=== PATIENT | male | born 1980 | race Caucasian/White ===

== ENCOUNTER 2021-07-02 20:39 | Inpatient (IN) | payer SELFPAY ==
[~2021-07-02] VITALS: Ht 180.3 cm; Wt 83.0 kg
[2021-07-02] MEDS ORDERED: ACETAMINOPHEN 500 MG TABLET PO ONE (21:00)
--- NOTE | 2021-07-02 21:26 | RAD ---
Exam: Chest one view INDICATION: Fever TECHNIQUE: Frontal view of the chest Comparisons: None FINDINGS: The cardiomediastinal silhouette and pulmonary vessels are within normal limits. The lung and pleural spaces are clear. IMPRESSION: No acute cardiopulmonary process. Electronically signed by: Nikolay Carrera MD (07/02/2021 9:23 PM) ELMO
[2021-07-02 21:35] LABS: BASO # 0.1 x10^3/uL (0.0-0.2); BASO % 1 % (0-3); EOS % 0 % (0-3); HEMATOCRIT 43.7 % (39.0-53.0); LYMPH # 1.4 x10^3/uL (1.0-4.8); LYMPH % 15 % (24-48); MEAN CORPUSCULAR HEMOGLOBIN 31 pg (25-35); MEAN CORPUSCULAR HGB CONC 34 g/dL (31-37); MEAN CORPUSCULAR VOLUME 89 fL (79-100); MONO % 11 % (0-9); NEUT # 6.9 x10^3/uL (1.8-7.7); NEUT % 73 % (31-73); PLATELET COUNT 197 x10^3/uL (140-400); RED CELL DISTRIBUTION WIDTH 13.8 % (11.5-14.5); WHITE BLOOD COUNT 9.4 x10^3/uL (4.0-11.0)
[2021-07-02 21:44] LABS: CALCIUM 8.4 mg/dL (8.5-10.1); CREATININE 1.9 mg/dL (0.7-1.3); GFR 38.9
[2021-07-02 21:56] LABS: INFLUENZA A PATIENT NEGATIVE (NEGATIVE); INFLUENZA B PATIENT NEGATIVE (NEGATIVE)
[2021-07-02 21:59] LABS: ALBUMIN 3.3 g/dL (3.4-5.0); ALBUMIN/GLOBULIN RATIO 0.7 (1.0-1.7); TOTAL BILIRUBIN 0.3 mg/dL (0.2-1.0); TOTAL PROTEIN 7.9 g/dL (6.4-8.2)
--- NOTE | 2021-07-02 23:27 | PHYS DOC ---
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 Patient states symptoms have been going on since this morning. He states he went to work and his temperature was 102. He states he was tested at work for covid at work and was negative. He somehow went home and the did a rapid Covid test without his knowledge (he states he was sleeping when his nose was swabbed) and he was positive for Covid. states patient's oxygen was running low in the low to mid 80s. 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 Patient denies any chest pain. Patient states he is fully vaccinated against COVID-19 though he will not name the vaccine he received and when. Review of Systems: Review of Systems: Constitutional: Reports fatigue and fever Eyes: Denies change in visual acuity. [] HENT: Denies nasal congestion or sore throat. [] Respiratory: Reports shortness of breath Cardiovascular: Denies chest pain or edema. [] GI: Denies abdominal pain, nausea, vomiting, bloody stools or diarrhea. [] : Denies dysuria. [] Musculoskeletal: Denies back pain or joint pain. [] Integument: Denies rash. [] Neurologic: Denies headache, focal weakness or sensory changes. [] Psychiatric: Denies depression or anxiety. [] Heart Score: C/O Chest Pain: N/A Risk Factors: Risk Factors: DM, Current or recent (<one month) smoker, HTN, HLP, family history of CAD, obesity. Risk Scores: Score 0 - 3: 2.5% MACE over next 6 weeks - Discharge Home Score 4 - 6: 20.3% MACE over next 6 weeks - Admit for Clinical Observation Score 7 - 10: 72.7% MACE over next 6 weeks - Early Invasive Strategies Current Medications: Current Medications Medications (Trade) Dose Ordered Sig/Shorty Start Time Stop Time Status Last Admin Dose Admin Acetaminophen (Tylenol) 1,000 mg 1X ONCE 07/02/21 21:00 07/02/21 21:01 DC Allergies: Allergies: Allergies Coded Allergies Type Severity Reaction Last Updated Verified Penicillins Allergy Severe 07/02/21 Yes Physical Exam: PE: Constitutional: Well developed, well nourished, no acute distress, non-toxic appearance. [] HENT: Normocephalic, atraumatic, bilateral external ears normal, oropharynx moist, no oral exudates, nose normal. [] Eyes: PERRLA, EOMI, conjunctiva normal, no discharge. [] Neck: Normal range of motion, no tenderness, supple, no stridor. [] Cardiovascular:Heart rate regular rhythm, no murmur [] Lungs & Thorax: Bilateral breath sounds clear to auscultation [] Abdomen: Bowel sounds normal, soft, no tenderness, no masses, no pulsatile masses. [] Skin: Warm, dry, no erythema, no rash. [] Back: No tenderness, no CVA tenderness. [] Extremities: No tenderness, no cyanosis, no clubbing, ROM intact, no edema. [] Neurologic: Alert and oriented X 3, normal motor function, normal sensory function, no focal deficits noted. [] Psychologic: Affect normal, judgement normal, mood normal. [] Current Patient Data: Labs: Laboratory Tests Test 07/02/21 21:15 White Blood Count 9.4 x10^3/uL (4.0-11.0) Red Blood Count 4.90 x10^6/uL (4.30-5.70) Hemoglobin 15.0 g/dL (13.0-17.5) Hematocrit 43.7 % (39.0-53.0) Mean Corpuscular Volume 89 fL (79-100) Mean Corpuscular Hemoglobin 31 pg (25-35) Mean Corpuscular Hemoglobin Concent 34 g/dL (31-37) Red Cell Distribution Width 13.8 % (11.5-14.5) Platelet Count 197 x10^3/uL (140-400) Neutrophils (%) (Auto) 73 % (31-73) Lymphocytes (%) (Auto) 15 % (24-48) L Monocytes (%) (Auto) 11 % (0-9) H Eosinophils (%) (Auto) 0 % (0-3) Basophils (%) (Auto) 1 % (0-3) Neutrophils # (Auto) 6.9 x10^3/uL (1.8-7.7) Lymphocytes # (Auto) 1.4 x10^3/uL (1.0-4.8) Monocytes # (Auto) 1.0 x10^3/uL (0.0-1.1) Eosinophils # (Auto) 0.0 x10^3/uL (0.0-0.7) Basophils # (Auto) 0.1 x10^3/uL (0.0-0.2) Sodium Level 132 mmol/L (136-145) L Potassium Level 4.0 mmol/L (3.5-5.1) Chloride Level 99 mmol/L (98-107) Carbon Dioxide Level 25 mmol/L (21-32) Anion Gap 8 (6-14) Blood Urea Nitrogen 19 mg/dL (8-26) Creatinine 1.9 mg/dL (0.7-1.3) H Estimated GFR (Cockcroft-Gault) 38.9 BUN/Creatinine Ratio 10 (6-20) Glucose Level 89 mg/dL (70-99) Lactic Acid Level 0.6 mmol/L (0.4-2.0) Calcium Level 8.4 mg/dL (8.5-10.1) L Magnesium Level 2.0 mg/dL (1.8-2.4) Total Bilirubin 0.3 mg/dL (0.2-1.0) Aspartate Amino Transferase (AST) 24 U/L (15-37) Alanine Aminotransferase (ALT) 19 U/L (16-63) Alkaline Phosphatase 71 U/L (46-116) Troponin I High Sensitivity 41 ng/L (4-75) BQ-Kxa-A-Type Natriuretic Peptide 526 pg/mL (0-124) H Total Protein 7.9 g/dL (6.4-8.2) Albumin 3.3 g/dL (3.4-5.0) L Albumin/Globulin Ratio 0.7 (1.0-1.7) L Procalcitonin 0.17 ng/mL (0.00-0.10) H Influenza Type A Antigen Negative (NEGATIVE) Influenza Type B Antigen Negative (NEGATIVE) SARS-CoV-2 Antigen (Rapid) Negative (NEGATIVE) Laboratory Tests 07/02/21 21:15 Laboratory Tests 07/02/21 21:15 Vital Signs: Vital Signs Date Time Temp Pulse Resp B/P (MAP) Pulse Ox O2 Delivery O2 Flow Rate FiO2 07/02/21 22:00 92 18 100/58 (72) 92 Room Air 07/02/21 20:40 98.0 98.0 EKG: EK interpreted by Dr. Mann sinus rhythm heart rate 91 no STEMI [] Radiology/Procedures: Radiology/Procedures: []PROCEDURE: PORTABLE CHEST 1V Exam: Chest one view INDICATION: Fever TECHNIQUE: Frontal view of the chest Comparisons: None FINDINGS: The cardiomediastinal silhouette and pulmonary vessels are within normal limits. The lung and pleural spaces are clear. IMPRESSION: No acute cardiopulmonary process. Electronically signed by: Reinier Kingston MD (07/02/2021 9:23 PM) [facility] DICTATED and SIGNED BY: REINIER KINGSTON MD DATE: 07/02/[id number] 0 Course & Med Decision Making: Course & Med Decision Making Pertinent Labs and Imaging studies reviewed. (See chart for details) This is a 41-year-old male patient with history of stage III kidney disease, 1 kidney, presenting today complaining of shortness of breath, fatigue, fever, body aches symptoms began today. Patient states the did a home COVID19 test on him which was positive. Vitals on arrival to the ED temperature 98.0, heart rate 1 7, respiration 20 on room air, O2 sats 90 to 94%, blood pressure 108/56. Chest x-ray is negative for any acute findings Negative influenza a and B Negative rapid Covid test, PCR Covid pending CBC with no acute findings, CMP with creatinine of 1.9, BUN is normal, I spoke to patient's , is very concerned and was not willing to take patient home. Patient will be admitted Dragon Disclaimer: Dragon Disclaimer: This electronic medical record was generated, in whole or in part, using a voice recognition dictation system. Departure Departure Impression: Primary Impression: Person under investigation for COVID-19 Additional Impressions: Shortness of breath CRF (chronic renal failure) Qualified Codes: N18.9 - Chronic kidney disease, unspecified Disposition: 09 ADMITTED INPATIENT Condition: STABLE Referrals: UNKNOWN PCP NAME (PCP) MATILDE THOMAS APRN Jul 02, 2021 23:26
[2021-07-02] MEDS ORDERED: ACETAMINOPHEN 325 MG TABLET. PO PRN (23:30)
[2021-07-02] MEDS ORDERED: MORPHINE SULFATE 2 MG/ML INJ. IVP PRN (23:30)
[2021-07-02] MEDS ORDERED: ONDANSETRON PF 4 MG/2 ML VIAL. IVP PRN (23:30)
[2021-07-03 04:24] LABS: BASO % 1 % (0-3); EOS % 0 % (0-3); HEMATOCRIT 45.7 % (39.0-53.0); HEMOGLOBIN 15.3 g/dL (13.0-17.5); LYMPH # 1.9 x10^3/uL (1.0-4.8); LYMPH % 24 % (24-48); MEAN CORPUSCULAR HEMOGLOBIN 30 pg (25-35); MEAN CORPUSCULAR HGB CONC 34 g/dL (31-37); MEAN CORPUSCULAR VOLUME 91 fL (79-100); MONO % 13 % (0-9); NEUT # 4.9 x10^3/uL (1.8-7.7); NEUT % 62 % (31-73); PLATELET COUNT 190 x10^3/uL (140-400); RED BLOOD COUNT 5.04 x10^6/uL (4.30-5.70); WHITE BLOOD COUNT 7.8 x10^3/uL (4.0-11.0)
[2021-07-03 04:47] LABS: ALBUMIN 3.4 g/dL (3.4-5.0); ALBUMIN/GLOBULIN RATIO 0.9 (1.0-1.7); CALCIUM 8.2 mg/dL (8.5-10.1); CREATININE 1.9 mg/dL (0.7-1.3); GFR 38.9; POTASSIUM 4.1 mmol/L (3.5-5.1); TOTAL BILIRUBIN 0.3 mg/dL (0.2-1.0); TOTAL PROTEIN 7.2 g/dL (6.4-8.2)
[2021-07-03 05:02] VITALS: BP 99/64
[2021-07-03] MEDS ORDERED: bupropion (05:38)
[2021-07-03 07:00] VITALS: BP 103/55
--- NOTE | 2021-07-03 08:29 | EKG ---
[facility] [address] [place] [address] Test Date: 2021-07-02 Test Time: 21:10:29 Pat Name: CODY BADILLO Department: Room: [facility] Gender: M Half Backer: : 1980 Requested By: MATILDE THOMAS Order Number: [id number] Reading MD: Tramaine Zhang Measurements Intervals Raymond Rate: 91 P: 64 MD: 148 QRS: 29 QRSD: 90 T: 44 QT: 336 QTc: 415 Interpretive Statements SINUS RHYTHM LEFT ATRIAL ABNORMALITY INCOMPLETE RIGHT BUNDLE BRANCH BLOCK Electronically Signed On 07-03-2021 13:39:34 TOY DESIGNER by Tramaine Zhang
--- NOTE | 2021-07-03 09:55 | PDOC1 ---
History and Physical Date of Admission Date of Admission DATE: 07/03/21 TIME: 09:52 Identification/Chief Complaint Chief Complaint Fever, shortness of breath, COVID19 positive Source Source: Chart review, Patient History of Present Illness History of Present Illness Mr Cole is a 41 yo male [employer] w/ PMHx CKDIII also s/p kidney donation 2019 in [place] who presents to the ED 07/02/21 complaining of fatigue, fever, body aches and shortness breath starting on . At work was noted with fever 102 F. states patient's oxygen was running low in the low to mid 80s. Patient denies any chest pain. Notes his is COVID-19 +8 days prior to arrival. 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 He had his COVID vaccines august 2020 WBC 9.4, Hb 15, platelets 197, NA 132, K4, BUN 19, CR 1.9, lactic acid 0.6, calcium 8.4, magnesium 2, bilirubin 0.3, AST 24, ALT 19, alkaline phosphatase 71, high-sensitivity troponin is 41, NT proBNP is 526, albumin 3.3, repeat high- sensitivity troponin is 35, procalcitonin was checked which was 0.17 EKG appears sinus rhythm rate of 91 bpm, incomplete right bundle branch block otherwise normal axis and intervals QTc [address] segment elevations no TWI Chest radiograph no abnormalities. Past Medical History Renal/: Chronic renal failure Past Surgical History Past Surgical History Right total knee arthroplasty with revision, appy Past Surgical History: Appendectomy, Total knee replacement (Right x2) Family History Family History: Hypertension Social History Smoke: 1 pack per day ALCOHOL: none Drugs: None Current Problem List Problem List Problems Medical Problems: (1) CRF (chronic renal failure) Status: Acute (2) Person under investigation for COVID-19 Status: Acute (3) Shortness of breath Status: Acute Current Medications Current Medications Current Medications Acetaminophen (Tylenol) 1,000 mg 1X ONCE PO ; Start 07/02/21 at 21:00; Stop 07/02/21 at 21:01; Status DC Ondansetron HCl (Zofran) 4 mg PRN Q8HRS PRN IVP NAUSEA/VOMITING; Start 07/02/21 at 23:30; Stop 2/3/22 at 23:29 Morphine Sulfate (Morphine Sulfate) 2 mg PRN Q2HR PRN IVP PAIN; Start 07/02/21 at 23:30; Stop 07/03/21 at 23:29 Acetaminophen (Tylenol) 650 mg PRN Q4HRS PRN PO FEVER > 100.3'F; Start 07/02/21 at 23:30; Stop 07/03/21 at 23:29 Active Scripts Active Reported [bupropion] Allergies Allergies: Coded Allergies: Penicillins (Verified Allergy, Severe, 07/02/21) ROS General: YES: Chills, Night Sweats, Fatigue, Malaise, Appetite; No: Other PSYCHOLOGICAL ROS: YES: Anxiety; No: Behavioral Disorder, Concentration difficultie, Decreased libido, Depression, Disorientation, Hallucinations, Hostility, Irritablity, Memory difficulties, Mood Swings, Obsessive thoughts, Physical abuse, Sexual abuse, Sleep disturbances, Suicidal ideation, Other Eyes: No Blurry vision, No Decreased vision, No Double vision, No Dry eyes, No Excessive tearing, No Eye Pain, No Itchy Eyes, No Loss of vision, No Photophobia, No Scotomata, No Uses contacts, No Uses glasses, No Other HEENT: YES: Heacaches, Nasal congestion; No: Visual Changes, Hearing change, Nasal discharge, Oral lesions, Sinus pain, Sore Throat, Epistaxis, Sneezing, Snoring, Tinnitus, Vertigo, Vocal changes, Other ALLERGY AND IMMUNOLOGY: No: Hives, Insect Bite Sensitivity, Itchy/Watery Eyes, Nasal Congestion, Post Nasal Drip, Seasonal Allergies, Other Hematological and Lymphatic: No: Bleeding Problems, Blood Clots, Blood Transfusions, Brusing, Night Sweats, Pallor, Swollen Lymph Nodes, Other ENDOCRINE: No: Breast Changes, Galactorrhea, Hair Pattern Changes, Hot Flashes, Malaise/lethargy, Mood Swings, Palpitations, Polydipsia/polyuria, Skin Changes, Temperature Intolerance, Unexpected Weight Changes, Other Breast: No New/Changing Breast Lumps, No Nipple changes, No Nipple discharge, No Other Respiratory: YES: Cough, Shortness of breath; No: Hemoptysis, Orthopnea, Pleuritic Pain, SOB with excertion, Sputum Changes, Stridor, Tachypnea, Wheezing, Other Cardiovascular: No Chest Pain, No Palpitations, No Orthopnea, No Paroxysmal Noc. Dyspnea, No Edema, No Lt Headedness, No Other Gastrointestinal: No Nausea, No Vomiting, No Abdominal Pain, No Diarrhea, No Constipation, No Melena, No Hematochezia, No Other Genitourinary: No Dysuria, No Frequency, No Incontinence, No Hematuria, No Retention, No Discharge, No Urgency, No Pain, No Flank Pain, No Other, No , No , No , No , No , No , No Musculoskeletal: No Gait Disturbance, No Joint Pain, No Joint Stiffness, No Joint Swelling, No Muscle Pain, No Muscular Weakness, No Pain In:, No Swelling In:, No Other Neurological: No Behavorial Changes, No Bowel/Bladder ControlChng, No Confusion, No Dizziness, No Gait Disturbance, No Headaches, No Impaired Coord/balance, No Memory Loss, No Numbness/Tingling, No Seizures, No Speech Problems, No Tremors, No Visual Changes, No Weakness, No Other Skin: No Dry Skin, No Eczema, No Hair Changes, No Lumps, No Mole Changes, No Mottling, No Nail Changes, No Pruritus, No Rash, No Skin Lesion Changes, No Other, No Acne Physical Exam General: Alert, Oriented X3, Cooperative, No acute distress HEENT: Atraumatic, PERRLA, EOMI, Mucous membr. moist/pink Lungs: Clear to auscultation, Normal air movement Heart: S1S2, RRR, no thrills, no rubs, no gallops, no murmurs Abdomen: Normal bowel sounds, Soft, No tenderness, No hepatosplenomegaly, No masses Rectal Exam: not examined Extremities: No clubbing, No cyanosis, No edema, Normal pulses, No tenderness/swelling Skin: No rashes, No breakdown, No significant lesion Neuro: Normal gait, Normal speech, Strength at 5/5 X4 ext, Normal tone, Sensation intact, Cranial nerves 3-12 NL, Reflexes 2+ Psych/Mental Status: Mental status NL, Mood NL Vitals Vitals Vital Signs Date Time Temp Pulse Resp B/P (MAP) Pulse Ox O2 Delivery O2 Flow Rate FiO2 07/03/21 05:02 98.2 82 20 99/64 (76) 98 98.2 07/03/21 05:00 Room Air Labs Labs Laboratory Tests Test 07/02/21 21:15 07/02/21 23:15 07/03/21 02:40 White Blood Count 9.4 x10^3/uL (4.0-11.0) 7.8 x10^3/uL (4.0-11.0) Red Blood Count 4.90 x10^6/uL (4.30-5.70) 5.04 x10^6/uL (4.30-5.70) Hemoglobin 15.0 g/dL (13.0-17.5) 15.3 g/dL (13.0-17.5) Hematocrit 43.7 % (39.0-53.0) 45.7 % (39.0-53.0) Mean Corpuscular Volume 89 fL (79-100) 91 fL (79-100) Mean Corpuscular Hemoglobin 31 pg (25-35) 30 pg (25-35) Mean Corpuscular Hemoglobin Concent 34 g/dL (31-37) 34 g/dL (31-37) Red Cell Distribution Width 13.8 % (11.5-14.5) 14.0 % (11.5-14.5) Platelet Count 197 x10^3/uL (140-400) 190 x10^3/uL (140-400) Neutrophils (%) (Auto) 73 % (31-73) 62 % (31-73) Lymphocytes (%) (Auto) 15 % (24-48) 24 % (24-48) Monocytes (%) (Auto) 11 % (0-9) 13 % (0-9) Eosinophils (%) (Auto) 0 % (0-3) 0 % (0-3) Basophils (%) (Auto) 1 % (0-3) 1 % (0-3) Neutrophils # (Auto) 6.9 x10^3/uL (1.8-7.7) 4.9 x10^3/uL (1.8-7.7) Lymphocytes # (Auto) 1.4 x10^3/uL (1.0-4.8) 1.9 x10^3/uL (1.0-4.8) Monocytes # (Auto) 1.0 x10^3/uL (0.0-1.1) 1.0 x10^3/uL (0.0-1.1) Eosinophils # (Auto) 0.0 x10^3/uL (0.0-0.7) 0.0 x10^3/uL (0.0-0.7) Basophils # (Auto) 0.1 x10^3/uL (0.0-0.2) 0.0 x10^3/uL (0.0-0.2) Sodium Level 132 mmol/L (136-145) 135 mmol/L (136-145) Potassium Level 4.0 mmol/L (3.5-5.1) 4.1 mmol/L (3.5-5.1) Chloride Level 99 mmol/L (98-107) 100 mmol/L (98-107) Carbon Dioxide Level 25 mmol/L (21-32) 26 mmol/L (21-32) Anion Gap 8 (6-14) 9 (6-14) Blood Urea Nitrogen 19 mg/dL (8-26) 21 mg/dL (8-26) Creatinine 1.9 mg/dL (0.7-1.3) 1.9 mg/dL (0.7-1.3) Estimated GFR (Cockcroft-Gault) 38.9 38.9 BUN/Creatinine Ratio 10 (6-20) 11 (6-20) Glucose Level 89 mg/dL (70-99) 82 mg/dL (70-99) Lactic Acid Level 0.6 mmol/L (0.4-2.0) Calcium Level 8.4 mg/dL (8.5-10.1) 8.2 mg/dL (8.5-10.1) Magnesium Level 2.0 mg/dL (1.8-2.4) Total Bilirubin 0.3 mg/dL (0.2-1.0) 0.3 mg/dL (0.2-1.0) Aspartate Amino Transf (AST/SGOT) 24 U/L (15-37) 26 U/L (15-37) Alanine Aminotransferase (ALT/SGPT) 19 U/L (16-63) 20 U/L (16-63) Alkaline Phosphatase 71 U/L (46-116) 69 U/L (46-116) Troponin I High Sensitivity 41 ng/L (4-75) 35 ng/L (4-75) 31 ng/L (4-75) DX-Rci-M-Type Natriuretic Peptide 526 pg/mL (0-124) Total Protein 7.9 g/dL (6.4-8.2) 7.2 g/dL (6.4-8.2) Albumin 3.3 g/dL (3.4-5.0) 3.4 g/dL (3.4-5.0) Albumin/Globulin Ratio 0.7 (1.0-1.7) 0.9 (1.0-1.7) Procalcitonin 0.17 ng/mL (0.00-0.10) Influenza Type A Antigen Negative (NEGATIVE) Influenza Type B Antigen Negative (NEGATIVE) SARS-CoV-2 RNA (PATTI) Positive (Negative) SARS-CoV-2 Antigen (Rapid) Negative (NEGATIVE) Laboratory Tests Test 07/02/21 21:15 07/02/21 23:15 07/03/21 02:40 White Blood Count 9.4 x10^3/uL (4.0-11.0) 7.8 x10^3/uL (4.0-11.0) Red Blood Count 4.90 x10^6/uL (4.30-5.70) 5.04 x10^6/uL (4.30-5.70) Hemoglobin 15.0 g/dL (13.0-17.5) 15.3 g/dL (13.0-17.5) Hematocrit 43.7 % (39.0-53.0) 45.7 % (39.0-53.0) Mean Corpuscular Volume 89 fL (79-100) 91 fL (79-100) Mean Corpuscular Hemoglobin 31 pg (25-35) 30 pg (25-35) Mean Corpuscular Hemoglobin Concent 34 g/dL (31-37) 34 g/dL (31-37) Red Cell Distribution Width 13.8 % (11.5-14.5) 14.0 % (11.5-14.5) Platelet Count 197 x10^3/uL (140-400) 190 x10^3/uL (140-400) Neutrophils (%) (Auto) 73 % (31-73) 62 % (31-73) Lymphocytes (%) (Auto) 15 % (24-48) 24 % (24-48) Monocytes (%) (Auto) 11 % (0-9) 13 % (0-9) Eosinophils (%) (Auto) 0 % (0-3) 0 % (0-3) Basophils (%) (Auto) 1 % (0-3) 1 % (0-3) Neutrophils # (Auto) 6.9 x10^3/uL (1.8-7.7) 4.9 x10^3/uL (1.8-7.7) Lymphocytes # (Auto) 1.4 x10^3/uL (1.0-4.8) 1.9 x10^3/uL (1.0-4.8) Monocytes # (Auto) 1.0 x10^3/uL (0.0-1.1) 1.0 x10^3/uL (0.0-1.1) Eosinophils # (Auto) 0.0 x10^3/uL (0.0-0.7) 0.0 x10^3/uL (0.0-0.7) Basophils # (Auto) 0.1 x10^3/uL (0.0-0.2) 0.0 x10^3/uL (0.0-0.2) Sodium Level 132 mmol/L (136-145) 135 mmol/L (136-145) Potassium Level 4.0 mmol/L (3.5-5.1) 4.1 mmol/L (3.5-5.1) Chloride Level 99 mmol/L (98-107) 100 mmol/L (98-107) Carbon Dioxide Level 25 mmol/L (21-32) 26 mmol/L (21-32) Anion Gap 8 (6-14) 9 (6-14) Blood Urea Nitrogen 19 mg/dL (8-26) 21 mg/dL (8-26) Creatinine 1.9 mg/dL (0.7-1.3) 1.9 mg/dL (0.7-1.3) Estimated GFR (Cockcroft-Gault) 38.9 38.9 BUN/Creatinine Ratio 10 (6-20) 11 (6-20) Glucose Level 89 mg/dL (70-99) 82 mg/dL (70-99) Lactic Acid Level 0.6 mmol/L (0.4-2.0) Calcium Level 8.4 mg/dL (8.5-10.1) 8.2 mg/dL (8.5-10.1) Magnesium Level 2.0 mg/dL (1.8-2.4) Total Bilirubin 0.3 mg/dL (0.2-1.0) 0.3 mg/dL (0.2-1.0) Aspartate Amino Transf (AST/SGOT) 24 U/L (15-37) 26 U/L (15-37) Alanine Aminotransferase (ALT/SGPT) 19 U/L (16-63) 20 U/L (16-63) Alkaline Phosphatase 71 U/L (46-116) 69 U/L (46-116) Troponin I High Sensitivity 41 ng/L (4-75) 35 ng/L (4-75) 31 ng/L (4-75) ED-Fqv-N-Type Natriuretic Peptide 526 pg/mL (0-124) Total Protein 7.9 g/dL (6.4-8.2) 7.2 g/dL (6.4-8.2) Albumin 3.3 g/dL (3.4-5.0) 3.4 g/dL (3.4-5.0) Albumin/Globulin Ratio 0.7 (1.0-1.7) 0.9 (1.0-1.7) Procalcitonin 0.17 ng/mL (0.00-0.10) Influenza Type A Antigen Negative (NEGATIVE) Influenza Type B Antigen Negative (NEGATIVE) SARS-CoV-2 RNA (PATTI) Positive (Negative) SARS-CoV-2 Antigen (Rapid) Negative (NEGATIVE) Images Images Chest radiograph: The cardiomediastinal silhouette and pulmonary vessels are within normal limits. The lung and pleural spaces are clear. IMPRESSION: No acute cardiopulmonary process. VTE Prophylaxis Ordered VTE Prophylaxis Devices: No VTE Pharmacological Prophylaxi: Yes Assessment/Plan Assessment/Plan A/P: COVID 19 -not currently hypoxic. 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 Will monitor O2 status. Supportive care CKD3 -has previously donated his left kidney S/p nephrectomy - on left, was a kidney donor in 2019 Smoker - counseled on cessation, offered nicotine replacement FEN - renal diet PPX - heparin FULL CODE Dispo - inpatient, will d/w nephrology Justifications for Admission Other Justification RIFFEL,CHRISTOPHER S MD Jul 03, 2021 09:55
[2021-07-03] MEDS ORDERED: fentaNYL PF VIAL 100 MCG/2 ML VIAL IVP PRN (10:00)
[2021-07-03 11:00] VITALS: BP 113/63
[2021-07-03] MEDS ORDERED: ZINC SULFATE 220 MG CAPSULE. PO SCH (11:00)
[2021-07-03] MEDS ORDERED: NICOTINE 21MG PATCH. TD PRN (11:00)
[2021-07-03] MEDS ORDERED: ALBUTEROL SULFATE 8GM INHALER. INH PRN ×2 (11:00)
[2021-07-03] MEDS ORDERED: NICOTINE POLACRILEX 2MG GUM PACKAGE of 12. BC PRN (11:00)
[2021-07-03] MEDS ORDERED: guaiFENesin DM 200MG/20MG 10 ML SYRUP PO PRN (11:00)
--- NOTE | 2021-07-03 12:16 | PDOC3 ---
Discharge Summary Visit Information Final Diagnosis Problems Medical Problems: (1) CRF (chronic renal failure) Status: Acute (2) Person under investigation for COVID-19 Status: Acute (3) Shortness of breath Status: Acute Brief Hospital Course Allergies Allergies Coded Allergies Type Severity Reaction Last Updated Verified Penicillins Allergy Severe 07/02/21 Yes Vital Signs Vital Signs Date Time Temp Pulse Resp B/P (MAP) Pulse Ox O2 Delivery O2 Flow Rate FiO2 07/03/21 11:00 98.3 68 18 113/63 (80) 95 Room Air 98.3 Lab Results Laboratory Tests Test 07/02/21 21:15 07/02/21 23:15 07/03/21 02:40 White Blood Count 9.4 x10^3/uL (4.0-11.0) 7.8 x10^3/uL (4.0-11.0) Red Blood Count 4.90 x10^6/uL (4.30-5.70) 5.04 x10^6/uL (4.30-5.70) Hemoglobin 15.0 g/dL (13.0-17.5) 15.3 g/dL (13.0-17.5) Hematocrit 43.7 % (39.0-53.0) 45.7 % (39.0-53.0) Mean Corpuscular Volume 89 fL (79-100) 91 fL (79-100) Mean Corpuscular Hemoglobin 31 pg (25-35) 30 pg (25-35) Mean Corpuscular Hemoglobin Concent 34 g/dL (31-37) 34 g/dL (31-37) Red Cell Distribution Width 13.8 % (11.5-14.5) 14.0 % (11.5-14.5) Platelet Count 197 x10^3/uL (140-400) 190 x10^3/uL (140-400) Neutrophils (%) (Auto) 73 % (31-73) 62 % (31-73) Lymphocytes (%) (Auto) 15 % (24-48) 24 % (24-48) Monocytes (%) (Auto) 11 % (0-9) 13 % (0-9) Eosinophils (%) (Auto) 0 % (0-3) 0 % (0-3) Basophils (%) (Auto) 1 % (0-3) 1 % (0-3) Neutrophils # (Auto) 6.9 x10^3/uL (1.8-7.7) 4.9 x10^3/uL (1.8-7.7) Lymphocytes # (Auto) 1.4 x10^3/uL (1.0-4.8) 1.9 x10^3/uL (1.0-4.8) Monocytes # (Auto) 1.0 x10^3/uL (0.0-1.1) 1.0 x10^3/uL (0.0-1.1) Eosinophils # (Auto) 0.0 x10^3/uL (0.0-0.7) 0.0 x10^3/uL (0.0-0.7) Basophils # (Auto) 0.1 x10^3/uL (0.0-0.2) 0.0 x10^3/uL (0.0-0.2) Sodium Level 132 mmol/L (136-145) 135 mmol/L (136-145) Potassium Level 4.0 mmol/L (3.5-5.1) 4.1 mmol/L (3.5-5.1) Chloride Level 99 mmol/L (98-107) 100 mmol/L (98-107) Carbon Dioxide Level 25 mmol/L (21-32) 26 mmol/L (21-32) Anion Gap 8 (6-14) 9 (6-14) Blood Urea Nitrogen 19 mg/dL (8-26) 21 mg/dL (8-26) Creatinine 1.9 mg/dL (0.7-1.3) 1.9 mg/dL (0.7-1.3) Estimated GFR (Cockcroft-Gault) 38.9 38.9 BUN/Creatinine Ratio 10 (6-20) 11 (6-20) Glucose Level 89 mg/dL (70-99) 82 mg/dL (70-99) Lactic Acid Level 0.6 mmol/L (0.4-2.0) Calcium Level 8.4 mg/dL (8.5-10.1) 8.2 mg/dL (8.5-10.1) Magnesium Level 2.0 mg/dL (1.8-2.4) Total Bilirubin 0.3 mg/dL (0.2-1.0) 0.3 mg/dL (0.2-1.0) Aspartate Amino Transf (AST/SGOT) 24 U/L (15-37) 26 U/L (15-37) Alanine Aminotransferase (ALT/SGPT) 19 U/L (16-63) 20 U/L (16-63) Alkaline Phosphatase 71 U/L (46-116) 69 U/L (46-116) Troponin I High Sensitivity 41 ng/L (4-75) 35 ng/L (4-75) 31 ng/L (4-75) GF-Ryx-Q-Type Natriuretic Peptide 526 pg/mL (0-124) Total Protein 7.9 g/dL (6.4-8.2) 7.2 g/dL (6.4-8.2) Albumin 3.3 g/dL (3.4-5.0) 3.4 g/dL (3.4-5.0) Albumin/Globulin Ratio 0.7 (1.0-1.7) 0.9 (1.0-1.7) Procalcitonin 0.17 ng/mL (0.00-0.10) Influenza Type A Antigen Negative (NEGATIVE) Influenza Type B Antigen Negative (NEGATIVE) SARS-CoV-2 RNA (PATTI) Positive (Negative) SARS-CoV-2 Antigen (Rapid) Negative (NEGATIVE) Laboratory Tests Test 07/02/21 21:15 07/02/21 23:15 07/03/21 02:40 White Blood Count 9.4 x10^3/uL (4.0-11.0) 7.8 x10^3/uL (4.0-11.0) Red Blood Count 4.90 x10^6/uL (4.30-5.70) 5.04 x10^6/uL (4.30-5.70) Hemoglobin 15.0 g/dL (13.0-17.5) 15.3 g/dL (13.0-17.5) Hematocrit 43.7 % (39.0-53.0) 45.7 % (39.0-53.0) Mean Corpuscular Volume 89 fL (79-100) 91 fL (79-100) Mean Corpuscular Hemoglobin 31 pg (25-35) 30 pg (25-35) Mean Corpuscular Hemoglobin Concent 34 g/dL (31-37) 34 g/dL (31-37) Red Cell Distribution Width 13.8 % (11.5-14.5) 14.0 % (11.5-14.5) Platelet Count 197 x10^3/uL (140-400) 190 x10^3/uL (140-400) Neutrophils (%) (Auto) 73 % (31-73) 62 % (31-73) Lymphocytes (%) (Auto) 15 % (24-48) 24 % (24-48) Monocytes (%) (Auto) 11 % (0-9) 13 % (0-9) Eosinophils (%) (Auto) 0 % (0-3) 0 % (0-3) Basophils (%) (Auto) 1 % (0-3) 1 % (0-3) Neutrophils # (Auto) 6.9 x10^3/uL (1.8-7.7) 4.9 x10^3/uL (1.8-7.7) Lymphocytes # (Auto) 1.4 x10^3/uL (1.0-4.8) 1.9 x10^3/uL (1.0-4.8) Monocytes # (Auto) 1.0 x10^3/uL (0.0-1.1) 1.0 x10^3/uL (0.0-1.1) Eosinophils # (Auto) 0.0 x10^3/uL (0.0-0.7) 0.0 x10^3/uL (0.0-0.7) Basophils # (Auto) 0.1 x10^3/uL (0.0-0.2) 0.0 x10^3/uL (0.0-0.2) Sodium Level 132 mmol/L (136-145) 135 mmol/L (136-145) Potassium Level 4.0 mmol/L (3.5-5.1) 4.1 mmol/L (3.5-5.1) Chloride Level 99 mmol/L (98-107) 100 mmol/L (98-107) Carbon Dioxide Level 25 mmol/L (21-32) 26 mmol/L (21-32) Anion Gap 8 (6-14) 9 (6-14) Blood Urea Nitrogen 19 mg/dL (8-26) 21 mg/dL (8-26) Creatinine 1.9 mg/dL (0.7-1.3) 1.9 mg/dL (0.7-1.3) Estimated GFR (Cockcroft-Gault) 38.9 38.9 BUN/Creatinine Ratio 10 (6-20) 11 (6-20) Glucose Level 89 mg/dL (70-99) 82 mg/dL (70-99) Lactic Acid Level 0.6 mmol/L (0.4-2.0) Calcium Level 8.4 mg/dL (8.5-10.1) 8.2 mg/dL (8.5-10.1) Magnesium Level 2.0 mg/dL (1.8-2.4) Total Bilirubin 0.3 mg/dL (0.2-1.0) 0.3 mg/dL (0.2-1.0) Aspartate Amino Transf (AST/SGOT) 24 U/L (15-37) 26 U/L (15-37) Alanine Aminotransferase (ALT/SGPT) 19 U/L (16-63) 20 U/L (16-63) Alkaline Phosphatase 71 U/L (46-116) 69 U/L (46-116) Troponin I High Sensitivity 41 ng/L (4-75) 35 ng/L (4-75) 31 ng/L (4-75) XI-Bsv-H-Type Natriuretic Peptide 526 pg/mL (0-124) Total Protein 7.9 g/dL (6.4-8.2) 7.2 g/dL (6.4-8.2) Albumin 3.3 g/dL (3.4-5.0) 3.4 g/dL (3.4-5.0) Albumin/Globulin Ratio 0.7 (1.0-1.7) 0.9 (1.0-1.7) Procalcitonin 0.17 ng/mL (0.00-0.10) Influenza Type A Antigen Negative (NEGATIVE) Influenza Type B Antigen Negative (NEGATIVE) SARS-CoV-2 RNA (PATTI) Positive (Negative) SARS-CoV-2 Antigen (Rapid) Negative (NEGATIVE) Brief Hospital Course Discharged to outpatient for sotrovimib infusion Discharge Information Miscellaneous Medications [bupropion] , (Reported) Entered as Reported by: Mervin Trujillo on 07/03/21537 Last Action: New Order on 07/03/21537 by RALPH Roberts MD Jul 03, 2021 12:16
--- NOTE | 2021-07-03 14:10 | NUR ---
SS following for discharge planning. SS reviewed pt chart and discussed with pt RN. Pt is from home with spouse and is currently on room air. COVID19 positive. Self Pay. [facility] following. Discharge order on the chart for home with self care.
[2021-07-03 14:55] VITALS: BP 107/63
--- NOTE | 2021-07-03 16:30 | NUR ---
Per Dr. Amador & Dr. Hinkle's order patient to be discharged but readmitted as outpatient to get sotrovimab infusion which patient is requesting. Patient states his doctors are wanting him to get this. Spoke with outpatient & pharmacy regarding this. Patient to leave a hour after infusion if not reactions from medication.
== END 2021-07-03 15:15 | disposition home or self-care (01) | DRG 179 ==
LOC: ER 20:39 → ED HOLD 23:00 → 6 SOUTH 07-03 00:08
PROVIDERS: ADMIT Internal Medicine; ATTEND Internal Medicine
DX: U07.1 COVID-19 (principal); F17.210 Nicotine dependence, cigarettes, uncomplicated; I45.10 Unspecified right bundle-branch block; N18.30 Chronic kidney disease, stage 3 unspecified; Z52.4 Kidney donor; Z82.49 Family history of ischemic heart disease and other diseases of the circulatory system; Z90.5 Acquired absence of kidney; Z96.651 Presence of right artificial knee joint; Z88.0 Allergy status to penicillin; Z71.6 Tobacco abuse counseling
CPT/HCPCS: 36415; 71045; 80053; 83605; 83735; 83880; 84145; 84484; 85025; 87040; 87428; 93005; U0003; U0005; 99285-25

== ENCOUNTER 2021-07-03 15:45 | Outpatient (CLI) | payer SELFPAY ==
[2021-07-03] VITALS (8 sets, daily range): BP systolic 105–125; BP diastolic 53–75
[~2021-07-03 15:45] MED LIST: bupropion
[2021-07-03] MEDS ORDERED: SOTROVIMAB 500 MG in IV DEXTROSE 5% 50 ML IV ONE (16:45)
--- NOTE | 2021-07-03 18:45 | NUR ---
Patient tolerated infusion well. No complaints or reactions. VSS. Gave patient education sheet on medication.
--- NOTE | 2021-07-03 20:05 | NUR ---
Discharge Note: CODY BADILLO Discharge instructions and discharge home medications reviewed with Patient and a copy given. All questions have been answered and understanding verbalized. The following instructions and handouts were given: discharge instructions, COVID education, sotrovimab education. Discontinued lines and drains: Peripheral IV intact. Patient discharged to Home or Self Care with Spouse via Wheelchair at 2005.
== END 2021-07-03 20:05 | disposition home or self-care (01) ==
LOC: OPSVCOP 15:45
PROVIDERS: ATTEND Internal Medicine
DX: U07.1 COVID-19 (principal); N18.30 Chronic kidney disease, stage 3 unspecified; F17.210 Nicotine dependence, cigarettes, uncomplicated; Z88.0 Allergy status to penicillin; Z90.5 Acquired absence of kidney; Z96.651 Presence of right artificial knee joint
CPT/HCPCS: J7060; M0247; Q0247